=== PATIENT | female | born 1930 | race Caucasian/White ===

== ENCOUNTER 2016-12-17 05:37 | Emergency (ER) | payer MEDICARE, MEDICAID ==
[2016-12-17 05:34] VITALS: BP 171/85; PULSE 76; RESP 20; O2SAT 99
--- NOTE | 2016-12-17 06:09 | ED.REPORT ---
HPI-Trauma Minor / Fall Date of Service December 17, 2016 ED Provider: Fausto Cha DO Patient is an 86 year old female with a history of CHF and COPD who presents to the ED via EMS due to a fall. Associated symptoms include left shoulder pain, a head laceration, back pain and a left elbow abrasion. She denies neck pain, abdominal pain, chest pain or leg pain. Per EMS, the patient was found on the ground by staff at [facility]. Nursing Notes Stated Complaint: GROUND LEVEL FALL,HEAD LACERATION Chief Complaint: Multiple Trauma/Fall Nursing Notes Reviewed: Yes Allergies: Coded Allergies: Penicillins (Verified Allergy, Unknown, 12/17/16) Sulfa (Sulfonamide Antibiotics) (Verified Allergy, Unknown, 12/17/16) Tetracyclines (Verified Allergy, Unknown, 12/17/16) rofecoxib (Verified Allergy, Unknown, 12/17/16) General Time Seen by MD: 06:04 Chief Complaint Fall Hx Obtained From: Patient Arrived By: Ambulance Onset Occurred: Just prior to arrival Symptom Duration: Since onset Caused by: Fall on ground Location: Shoulder left Recent Healthcare: No recent doctor visit, No recent hospitalization Similar Sx Previous: No Past Medical History Past Medical History COPD CHF Smoking History Unknown if Ever Smoker Social History Other Social History: Local resident Ambulatory Status Independent Review of Systems Review of Systems Note: left elbow laceration head laceration Respiratory: Denies: Non-productive cough, Shortness of breath Musculoskeletal: Reports: Back pain, Extremity pain (left shoulder), Denies: Neck pain Complete sys rev & neg: except as marked. Cardiovascular: Denies: Chest pain GI: Denies: Abdominal pain Physical Exam Initial Vital Signs Vital Signs (First) Date Time Temp Pulse Resp B/P Pulse Ox O2 Delivery O2 Flow Rate FiO2 12/17/16 05:34 37.0 76 20 171/85 99 Room Air Initial VS: Reviewed General/Constitutional: Awake, Alert Appearance / Presentation: Positive: Frail thin Neck: Atraumatic, Supple, Full range of motion, Non-tender Head / Eyes: Normocephalic, PERRL, EOMI 3cm left occipital hematoma with a 2cm underlying laceration ENT: Atraumatic, Airway patent Mouth: Positive: Mucous membranes dry Respiratory / Chest: Atraumatic, No respiratory distress Abdomen: Atraumatic, Soft, Non-tender Back: Atraumatic, Non-tender, No midline vertebral tend, No paraspinal tenderness, No CVA tenderness UPPER EXTREMITIES: tender to palpation of the left glenohumeral joint 4cm evulsion to the left skin flap of the elbow Lower Extremity / Pelvis / MS: Atraumatic, Full range of motion no pain with active range of motion Skin: Atraumatic, Color NL, No rash, Warm, Dry Neurologic: Oriented X3, Speech NL, No motor deficits, No sensory deficits Psychiatric: Affect NL, Mood NL Interpretation & Diagnostics Lab Results Interpretation Result Diagram: 12/17/16 0600 12/17/16 0600 Test 12/17/16 06:00 12/17/16 07:15 White Blood Count 9.6th/mm3 (3.8-10.1) Red Blood Count 4.46mil/mm3 (3.90-5.20) Hemoglobin 12.9g/dL (12.0-15.6) Hematocrit 40.0% (35.0-46.0) Mean Corpuscular Volume 89.7fL (81-100) Mean Corpuscular Hemoglobin 28.9pg (27.0-35.0) Mean Corpuscular Hemoglobin Concent 32.3% (32.0-37.0) Red Cell Distribution Width 15.4% (12.3-15.4) Platelet Count 361bil/L (150-400) Neutrophils (%) (Auto) 53.3% (40-74) Lymphocytes (%) (Auto) 25.3% (14-46) Monocytes (%) (Auto) 8.1% (4-12) Eosinophils (%) (Auto) 11.7% (0-5) Basophils (%) (Auto) 1.3% (0-3) Hold Purple Top Tube Received (Received) Prothrombin Time 11.1sec (8.1-12.5) Prothromb Time International Ratio 1.04ratio Activated Partial Thromboplast Time 27.1sec (22.8-33.0) Hold Blue Top Tube Received (Received) Sodium Level 137mEq/L (134-144) Potassium Level 4.4mEq/L (3.5-5.2) Chloride Level 99mEq/L (97-108) Carbon Dioxide Level 26mmol/L (18-29) Blood Urea Nitrogen 12mg/dL (8-27) Creatinine 0.66mg/dL (0.57-1.00) Estimat Glomerular Filtration Rate 121mL/min (>59) Glucose Level 84mg/dL (60-99) Calcium Level 9.5mg/dL (8.5-10.1) Hold [place] Top Tube Received (Received) Urine Color Yellow (YELLOW) Urine Appearance Hazy (CLEAR,HAZY) Urine pH 6.5 (5.0-8.0) Urine Specific [place] 1.005 (1.003-1.035) Urine Protein Negativemg/dL (NEG,TRACE) Urine Glucose (UA) Negativemg/dL (NEGATIVE) Urine Ketones Negativemg/dL (NEGATIVE) Urine Occult Blood Trace (NEGATIVE) Urine Nitrite Negative (NEGATIVE) Urine Bilirubin Negative (NEGATIVE) Urine Urobilinogen Normalmg/dL (NORMAL) Urine Leukocyte Esterase Large (NEGATIVE) Urine RBC 0-2/hpf (0-2) Urine WBC >50/hpf (0-5) Urine Epithelial Cells Occasional/hpf (NONE-MOD) Urine Crystals None seen (NONE SEEN) Urine Bacteria Few/hpf (NONE-FEW) Urine Hyaline Casts None/lpf (NONE) Urine Granular Casts None seen (NONE SEEN) Urine Waxy Casts None seen (NONE SEEN) Urine Red Blood Cell Casts None seen (NONE SEEN) Urine White Blood Cell Casts None seen (NONE SEEN) Urine Mucus None seen (None Seen) Urine Trichomonas None seen (NONE SEEN) Urine Yeast None (NONE SEEN) Urinalysis Comment None Urine Culture Reflexed Indicated X-Ray Interpretation Xray Interpretation: no acute sign of fracture or trauma X-Ray Ordered: Shoulder left Interpretation / Wet Read by: Wet read ED physician CT Head Interpretation CONCLUSION Acute traumatic subarachnoid hemorrhage and probable small associated subcortical hemorrhage with mild edema. 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 Right mastoid disease. Critical result acknowledged at 12/17/16 at 0705. Verbal report given to Dr. Cha at 12/17/16 at 0709. at 0710 Interpretation / Wet Read by: Interpret - Radiologist Procedures Laceration Management Time: 08:07 Procedure Performed by: ED physician Consent / Setup / Site Prep: Consent from patient, Hand hygiene observed Wound Length: 4 cm Local Anesthesia: Other (LET) Repair Skin: Gibson Closure Layers: 4 Post-Procedure / Complications: No complications, Condition improved, Tolerated procedure well, Patient stable Re-Eval/Medical Decision Med Decision/Clinical Course Patient presents confused status post unwitnessed fall with an obvious left occipital hematoma and laceration. She also has superficial skin tears the left arm. Head CT is immediately performed to exclude underlying intracranial hemorrhage and is positive for acute traumatic subarachnoid hemorrhage. After receiving the results of her head CT, her family was immediately contacted who are in agreement with not transferring her to a tertiary neurosurgical center. They would rather send her back to her care facility for further comfort measures. The primary care doctor for the patient was contacted and agrees to continue care at her nursing facility. She will be given Keppra for seizure prophylaxis, 1 g of Rocephin was given for urinary tract infection, she has remained in overall stable condition. She will be transferred back to [facility]. Re-Evaluation/Progress #1: Time of Eval: 07:00 Re-Evaluation/Progress Note: Nurse washed wounds on elbow and fingers Re-Evaluation/Progress #2: Time of Eval: 07:46 Patient Status: Pain improved Re-Evaluation/Progress Note: Discussed CT results and plan for care. Re-Evaluation/Progress #3: Time of Eval: 08:12 Patient Status: Pain improved Re-Evaluation/Progress Note: Discussed results with the patient's son and plan to discharge back to [facility]. The patient's son understands and agrees to the plan. All questions were addressed. Consultation #1: Call Returned at: 07:15 Note: Called patient's son to discuss further care since the patient has a DNR. The son agrees that the patient does not need to be transferred to [facility]. Consultation #2: Referral / Consult Name: Jose Raul Amaya DO Consulted With: On-call physician ([facility]) Call Returned at: 07:27 Instrument Maintenance Supervisor: Will see patient, Agrees with eval, Agrees with plan, Accepts admit Note: Would like the patient to keep her IV line in. Counseled Regarding: Diagnosis, Lab results, Need for follow-up, When/why to return to ED Discharge & Departure Impression: Primary Impression: Laceration of head Encounter type: initial encounter Location of open wound of head: scalp Foreign body presence: without foreign body Qualified Code: S01.01XA - Laceration without foreign body of scalp, initial encounter Additional Impressions: Fall Encounter type: initial encounter Qualified Code: W19.XXXA - Unspecified fall, initial encounter Elbow abrasion Encounter type: initial encounter Laterality: left Qualified Code: S50.312A - Abrasion of left elbow, initial encounter Left arm pain UTI (urinary tract infection) Urinary tract infection type: site unspecified Hematuria presence: without hematuria Qualified Code: N39.0 - Urinary tract infection, site not specified Subarachnoid hemorrhage Disposition: Home Discharge Condition All VS Reviewed: Yes Condition: Stable Additional Instructions: Today you were seen in the ER for a fall. You have a UTI, a head laceration, and multiple lacerations to your left arm. Also, most importantly, you have a subarachnoid hemorrhage in your brain. After discussion with both your family and your primary care doctor, you will be sent back to [facility]. It is important that you keep the head of bed elevated to at least 30. Avoid aspirin or other antiplatelet or blood thinning agents. Take Keppra 500 mg twice daily for 1 week for seizure prophylaxis. Use Keflex to treat the urinary tract infection. Call your primary care doctor today for further instructions and orders. Return to the ER as needed. Referrals: Jose Raul Amaya DO (PCP) Crit Care Except Billable Proc Time Spent: 75-104 minutes Services Performed: Patient management by me, Time spent at bedside, Reviewing test results Critical Care Notes: see MDM Vern Attestation Portions of this note were transcribed by Cassandra Mendez. I, Dr. Edna Cabello personally performed the history, physical exam and medical decision-making; I reviewed and confirmed the accuracy of the information in the transcribed note. Signed by: Vern May, 12/17/16 and 0618. copies to: Jose Raul Amaya Timothy S DO December 17, 2016 06:09 Pascale Mendez December 17, 2016 06:19
[2016-12-17] MEDS ORDERED: Lidocaine-Epi-Tetracaine Solution 3 mL Syringe TOPICAL ONE (06:20)
[2016-12-17] MEDS ORDERED: 0.9% Sodium Chloride 500 ML IV ONE (06:20)
[2016-12-17 06:26] LABS: BASOPHILS % (AUTO) 1.3 % (0-3); EOSINOPHILS % (AUTO) 11.7 % (0-5); MONOCYTES % (AUTO) 8.1 % (4-12); Mean Corpuscular Hemoglobin 28.9 pg (27.0-35.0); Mean Corpuscular Volume 89.7 fL (81-100); NEUTROPHILS % (AUTO) 53.3 % (40-74); Platelet Count 361 bil/L (150-400)
[2016-12-17] MEDS ORDERED: cefTRIAXone Inj 1,000 MG in Dextrose 5% Minibag Plus 50 ML IV ONE (07:20)
[2016-12-17 07:24] LABS: INR 1.04 ratio
[2016-12-17 07:53] LABS: APPEARANCE,URINE HAZY (CLEAR,HAZY); COLOR,URINE YELLOW (YELLOW); PH,URINE 6.5 (5.0-8.0)
[2016-12-17 07:54] LABS: OCCULT BLOOD,URINE TRACE (NEGATIVE); UROBILINOGEN,URINE NORMAL (NORMAL)
[2016-12-17] MEDS ORDERED: levETIRAcetam 500 mg Tablet PO ONE (07:55)
--- NOTE | 2016-12-17 08:40 | DRSVH ---
PROCEDURE: X-RAY LEFT SHOULDER, MINIMUM TWO VIEWS ([id number]) INDICATIONS: fall, shoulder pain TECHNIQUE: 2 views of the shoulder were acquired. COMPARISON: [facility], , CHEST 2 VIEW, 09/05/2016, 8:45. FINDINGS: Bones: Stable positioning of left shoulder arthroplasty. No periprosthetic fracture seen. Soft tissues: No suspicious soft tissue calcifications. IMPRESSION: Stable appearance of left shoulder arthroplasty. No displaced fracture seen. If there is continued pain, followup exam or additional imaging such as CT could be performed for further assessment. Dictated by: Seven GUERRERO Interpreted: Sherley Tripathi MD on 12/17/2016 at 8:38 Transcribed by: GAYB on 12/17/2016 at 8:40 Approved by: Sherley Tripathi MD, PhD on 12/17/2016 at 11:16
[2016-12-17 09:06] VITALS: BP 147/84; PULSE 65; RESP 14; O2SAT 100
--- NOTE | 2016-12-17 09:36 | DRSVH ---
PROCEDURE: CT BRAIN WITHOUT CONTRAST ([id number]) INDICATIONS: fall, head injury TECHNIQUE: Noncontrast 4.5 mm thick angled axial sections acquired from the foramen magnum to the vertex, with c oronal reformats. COMPARISON: [facility], CT, HEAD WITHOUT CONTRAST, 09/03/2016, 11:39. FINDINGS: Image quality: Excellent. CSF spaces: Basal cisterns are patent. No extra-axial fluid collections. The ventricles are symmet hector in size and shape. Brain: Patchy hyperdensities with surrounding edema are noted in the left parietal-temporal lobes li lupe representing acute/subacute parenchymal hematomas. No intracranial masses. There is cerebral vo lume loss for age, with resultant ventricular and sulcal prominence. There are periventricular and d eep white matter chronic small vessel ischemic changes. There is intracranial internal carotid arter y and vertebral artery atherosclerosis. Skull and face: Calvarium and visualized facial bones appear intact, without suspicious lesions. Sinuses: Visualized sinuses are clear. The right mastoids are partially opacified. Left mastoids are clear. IMPRESSION: 1. Acute/subacute parietal-temporal parenchymal hematomas with surrounding edema. 2. Opacification of the dependent portions of the right mastoid air cells which has progressed as com pared to prior CT scan. Please correlate with direct physical findings to differentiate serous fluid from an inflammatory process. Dictated by: Sherley Tripathi MD, PhD on 12/17/2016 at 9:29 Approved by: Sherley Tripathi MD, PhD on 12/17/2016 at 9:35
[2016-12-17] MEDS ORDERED: CEPH-512 PO (09:37)
[2016-12-17] MEDS ORDERED: KEP500TA PO (09:37)
== END 2016-12-17 09:57 | disposition home or self-care (01) ==
LOC: SED 05:37
DX: S01.01XA Laceration without foreign body of scalp, initial encounter (principal); S51.012A Laceration without foreign body of left elbow, initial encounter; S06.6X0A Traumatic subarachnoid hemorrhage without loss of consciousness, initial encounter; S50.312A Abrasion of left elbow, initial encounter; W18.39XA Other fall on same level, initial encounter; Y93.89 Activity, other specified; Y92.129 Unspecified place in nursing home as the place of occurrence of the external cause; Y99.8 Other external cause status; N39.0 Urinary tract infection, site not specified; M54.9 Dorsalgia, unspecified; M25.512 Pain in left shoulder; I50.9 Heart failure, unspecified; J44.9 Chronic obstructive pulmonary disease, unspecified; Z88.0 Allergy status to penicillin; Z88.1 Allergy status to other antibiotic agents; Z88.2 Allergy status to sulfonamides; Z88.8 Allergy status to other drugs, medicaments and biological substances
CPT/HCPCS: 12002; 36415; 70450; 73030; 80048; 81000; 85025; 85610; 85730; 87086; 87088; 87186; 96365; 99285; J0696; J7040